=== PATIENT | male | born 1975 | race Two or more races ===

== ENCOUNTER 2022-05-07 10:04 | Emergency (ER) | payer OTHER, SELFPAY ==
--- NOTE | ~2022-05-07 | CT_ITS ---
EXAMINATION: CT ABDOMEN AND PELVIS WITH CONTRAST CLINICAL INFORMATION: pubic pain and swelling COMPARISON: None TECHNIQUE: Multidetector volumetric images were obtained from the superior aspect of the liver through the pubic symphysis following administration 85 mL of Omnipaque 350 intravenous contrast. Sagittal and coronal reformatted images were obtained on the technologist's workstation. Oral contrast: No This CT examination was performed using dose optimization techniques as appropriate, variously including the following: *Automated exposure control *Adjustment of mA and/or kV according to patient size (this includes techniques or standardized protocols for targeted exams where dose is matched to indication/reason for exam; i.e. extremities or head) *Use of iterative reconstruction technique DLP: 715 mGy-cm FINDINGS: LUNG BASES: The visualized lung bases are unremarkable. LIVER, GALLBLADDER, AND BILIARY TREE: Mild diffuse low attenuation of liver parenchyma due to fatty change. There is no focal liver lesion or intrahepatic bile duct dilatation. Status post cholecystectomy. PANCREAS: Unremarkable. SPLEEN: Unremarkable. ADRENAL GLANDS: Unremarkable. KIDNEYS AND URETERS: The kidneys are normal in size, shape, and attenuation. No hydronephrosis, hydroureter, or calculi seen. No perinephric stranding. BLADDER: Unremarkable. GASTROINTESTINAL TRACT: No acute abnormality. There is no bowel wall thickening /edema. There is no bowel obstruction. There is a moderate volume of stool in the colon. The appendix is normal . The small bowel loops are unremarkable. The stomach is normal. There is no hiatal hernia. ABDOMINAL WALL: No significant hernia is appreciated. LYMPH NODES: Normal. VASCULAR: Unremarkable. PELVIC VISCERA: Unremarkable. OSSEOUS STRUCTURES: Unremarkable. CT/CT abdomen pelvis w IV con IMPRESSION: No significant abnormality. Fleischner guidelines were followed.
--- OUTSIDE RECORDS SUMMARY | 2022-05-07 10:16 | XMS_ITS | Continuity of Care Document ---
:1975 Author Organization [facility] Address [address] [place] [address]- Care Team Providers Name Role Phone Dino Hall MD Primary Care Physician [place] [facility] [place] 07[place]20 [facility] [address], [place] [address] Attending Physician: AdmApurva anthony Admitting Physician: Admtr, Ar8 Referring Physician: Admtr, Ar8 Allergies, Adverse Reactions, Alerts Substance Reaction Severity Status NKA Active Immunizations Given and Recorded Vaccine Date Status Refusal Reason influenza virus vaccine, inactivated 02/02/19 Given tetanus/diphtheria/pertussis, acel(Tdap) 01/04/13 Given Medications albuterol CFC free 90 mcg/inh inhalation aerosol 2, puffs, Inhalation, Every 6 hours, PRN, # 1 each, Refills 0, Tot. Refills 0, Maintenance, 06/20/2113:21:00 EDT, Aerosol, Route to Pharmacy Electronically, [id number], [facility]/pharmacy #[id number], 170, cm, 06/20/20 12:13:00 EDT, Hei... Start Date: 06/20/20 Status: Ordereddiclofenac sodium 50 mg oral delayed release tablet 1 tablet, By Mouth, 2 times a day, PRN as needed for pain, with food, # 60 tablet, 1 Refills, Maintenance, 05/20/20 13:57:00 EST, [id number], 170, cm, 05/20/20 13:40:00 EST, Height, 104, kg, 12/25/19 0:46:00 EDT, Dry Weight Start Date: 05/20/20 Status: Orderedergocalciferol 34288 iu oral capsule See Instructions, TAKE 1 CAPSULE BY MOUTH ONCE WEEKLY, # 12 capsule, Refills 0, Tot. Refills 0, SoftStop, 01/05/20 22:59:00 EDT, Instructions Replace Required Details, Route to Pharmacy Electronically, [facility]/pharmacy #[id number], 170, cm, 12/25/19 0:46:00 ED... Start Date: 01/05/20 Status: Orderedfenofibrate 160 mg oral tablet 1 tablet, By Mouth, Daily, # 90 tablet, 1 Refills, Maintenance, 01/11/20 12:49:00 EDT, [facility]/pharmacy #[id number], 170, cm, 01/10/20 9:00:00 EDT, Height, 104, kg, 12/25/19 0:46:00 EDT, Dry Weight Start Date: 01/11/20 Status: Orderedgabapentin 300 mg oral capsule 600 mg, 2, capsule, By Mouth, 2 times a day, # 360 capsule, Refills 3, Tot. Refills 3, Maintenance, 11/02/19 14:10:00 EDT, Route to Pharmacy Electronically, [facility]/pharmacy #[id number], 170, cm, 11/02/19 13:53:00 EDT, Height, 103.7, kg, 10/08/19 20:47:00 EDT,... Start Date: 11/02/19 Status: Orderedglimepiride 2 mg oral tablet 1 tablet, By Mouth, Daily, # 90 tablet, 0 Refills, Maintenance, 05/20/20 13:58:00 EST, [id number], 170, cm, 05/20/20 13:40:00 EST, Height, 104, kg, 12/25/19 0:46:00 EDT, Dry Weight Start Date: 05/20/20 Status: OrderedmetFORMIN 1000 mg oral tablet 1 tablet, By Mouth, 2 times a day with meals, # 180 tablet, 1 Refills, Maintenance, 04/16/20 9:02:00EST, [facility]/pharmacy #[id number], 170, cm, 01/24/20 14:13:00 EDT, Height, 104, kg, 12/25/19 0:46:00 EDT, Dry Weight Start Date: 04/16/20 Status: Orderedomeprazole 20 mg oral enteric coated capsule 1 capsule, By Mouth, 2 times a day, # 180 capsule, 1 Refills, Maintenance, 04/10/20 7:29:00 EST, [id number], 170, cm, 01/24/20 14:13:00 EDT, Height, 104, kg, 12/25/19 0:46:00 EDT, Dry Weight Start Date: 04/10/20 Status: OrderedTrulicity Pen 1.5 mg/0.5 mL subcutaneous solution = 1.5 mg, Subcutaneous Injection, Every week, rotate injection sites, # 2 mL, 5 Refills, Maintenance, 05/28/20 17:30:00 EST, Solution, [id number], 170, cm, 05/20/20 13:40:00 EST, Height, 104, kg, 12/25/19 0:46:00 EDT, Dry Weight Start Date: 05/28/20 Status: Ordered Problem List Condition Effective Dates Status Health Status Informant Asthma(Confirmed) Active Back pain(Confirmed) Active Diabetic neuropathy(Confirmed) Active Disturbance in sleep Active behavior(Confirmed) Elevated liver enzymes(Confirmed) Active Folliculitis(Confirmed) Active Foot pain(Confirmed) Active Gastroesophageal reflux Active disease(Confirmed) Hand pain(Confirmed) Active Hyperlipidemia(Confirmed) Active Knee pain(Confirmed) Active Left inguinal hernia(Confirmed) Active Numbness of hand(Confirmed) Active Obesity(Confirmed) Active Pain in elbow(Confirmed) Active Pain in wrist(Confirmed) Active Rib pain on right side(Confirmed) Active Shoulder joint pain(Confirmed) Active Acrochordon(Confirmed) Active Tobacco user(Confirmed) Active Controlled type 2 diabetes Active mellitus(Confirmed) Type II diabetes mellitus Active uncontrolled(Confirmed) Vitamin D deficiency(Confirmed) Active Social History Social History Type Response Smoking Status Never (less than 100 in life time) entered on: 07/05/18 Sex
--- OUTSIDE RECORDS SUMMARY | 2022-05-07 10:16 | XMS_ITS | Continuity of Care Document ---
:1975 Author Organization [facility] Address [address] [place] [address]- Care Team Providers Name Role Phone Dino Hall MD Primary Care Physician [place] [facility] [place] 07[place]/20 [facility] [address] [place] [address]- Encounter Diagnosis Mild asthma exacerbation (Discharge Diagnosis) - 06/24/20 Attending Physician: Dalia Barahona MD Referring Physician: Dino Hall MD Allergies, Adverse Reactions, Alerts Substance Reaction Severity Status NKA Active Immunizations Given and Recorded Vaccine Date Status Refusal Reason influenza virus vaccine, inactivated 02/02/19 Given tetanus/diphtheria/pertussis, acel(Tdap) 01/04/13 Given Medications albuterol 0.083% inhalation solution 3 mL = 2.5 mg, Inhalation, Every 6 hours, # 360 mL, 0 Refills, Maintenance, 06/24/20 12:05:00 EDT, Solution, [id number], Partial fill upon patient request if the prescription is for a schedule II opioid drug., 170, cm, 06/20/20 12:13:00 EDT, H... Start Date: 06/24/20 Stop Date: 07/24/20 Status: Orderedalbuterol CFC free 90 mcg/inh inhalation aerosol 2, puffs, Inhalation, Every 6 hours, PRN, # 1 each, Refills 0, Tot. Refills 0, Maintenance, 06/20/2113:21:00 EDT, Aerosol, Route to Pharmacy Electronically, [id number], [id number], 170, cm, 06/20/20 12:13:00 EDT, Hei... Start Date: 06/20/20 Status: Ordereddiclofenac sodium 50 mg oral delayed release tablet 1 tablet, By Mouth, 2 times a day, PRN as needed for pain, with food, # 60 tablet, 1 Refills, Maintenance, 05/20/20 13:57:00 EST, [facility]/pharmacy #[id number], 170, cm, 05/20/20 13:40:00 EST, Height, 104, kg, 12/25/19 0:46:00 EDT, Dry Weight Start Date: 05/20/20 Status: Orderedergocalciferol 49510 iu oral capsule See Instructions, TAKE 1 CAPSULE BY MOUTH ONCE WEEKLY, # 12 capsule, Refills 0, Tot. Refills 0, SoftStop, 01/05/20 22:59:00 EDT, Instructions Replace Required Details, Route to Pharmacy Electronically, [facility]/pharmacy #[id number], 170, cm, 12/25/19 0:46:00 ED... Start Date: 01/05/20 Status: Orderedfenofibrate 160 mg oral tablet 1 tablet, By Mouth, Daily, # 90 tablet, 1 Refills, Maintenance, 01/11/20 12:49:00 EDT, [facility]/pharmacy #[id number], 170, cm, 01/10/20 9:00:00 EDT, Height, 104, kg, 12/25/19 0:46:00 EDT, Dry Weight Start Date: 01/11/20 Status: OrderedFreestyle Lite Lancets See Instructions, # 180 units, Refills 1, Tot. Refills 1, Maintenance, Check blood glucose twice daily before meals. Dx: E11.65, 10/06/18 13:20:24 EDT, Compound Start Date: 10/06/18 Status: OrderedFreestyle Lite Test Strips See Instructions, # 180 strip(s), Refills 1, Tot. Refills 1, Maintenance, Check blood glucose twice daily before meals. Dx: E11.65, 10/06/18 13:19:39 EDT, Compound Start Date: 10/06/18 Status: OrderedFreestyle lite test strips. Freestyle lite test strips., See Instructions, # 200 each, Refills 3, Tot. Refills 3, Maintenance, test twice a day, 01/24/20 14:48:00 EDT, Supply, 170, cm, 01/24/20 14:13:00 EDT, Height, 104, kg, 12/25/19 0:46:00 EDT, Dry Weight Start Date: 01/24/20 Status: Orderedgabapentin 300 mg oral capsule 600 mg, 2, capsule, By Mouth, 2 times a day, # 360 capsule, Refills 3, Tot. Refills 3, Maintenance, 11/02/19 14:10:00 EDT, Route to Pharmacy Electronically, [facility]/pharmacy #[id number], 170, cm, 11/02/19 13:53:00 EDT, Height, 103.7, kg, 10/08/19 20:47:00 EDT,... Start Date: 11/02/19 Status: Orderedglimepiride 2 mg oral tablet 1 tablet, By Mouth, Daily, # 90 tablet, 0 Refills, Maintenance, 05/20/20 13:58:00 EST, [facility]/pharmacy #[id number], 170, cm, 05/20/20 13:40:00 EST, Height, 104, kg, 12/25/19 0:46:00 EDT, Dry Weight Start Date: 05/20/20 Status: OrderedmetFORMIN 1000 mg oral tablet 1 tablet, By Mouth, 2 times a day with meals, # 180 tablet, 1 Refills, Maintenance, 04/16/20 9:02:00EST, [facility]/pharmacy #[id number], 170, cm, 01/24/20 14:13:00 EDT, Height, 104, kg, 12/25/19 0:46:00 EDT, Dry Weight Start Date: 04/16/20 Status: Orderedomeprazole 20 mg oral enteric coated capsule 1 capsule, By Mouth, 2 times a day, # 180 capsule, 1 Refills, Maintenance, 04/10/20 7:29:00 EST, [facility]/pharmacy #[id number], 170, cm, 01/24/20 14:13:00 EDT, Height, [...] mellitus Active uncontrolled(Confirmed) Vitamin D deficiency(Confirmed) Active Diagnosis Diagnosis Type Effective Dates Health Clinical Infor mant Status Service Mild asthma Discharge 06/24/20 exacerbation Diagnosis Vital Signs Most recent to oldest [Reference Range]: 1 Height 170 cm (06/24/20 5:09 PM) Oxygen Saturation [94-100 %] 98 % (06/24/20 5:09 PM) Pulse Rate [55-90 bpm] 87 bpm (06/24/20 5:09 PM) Blood Pressure [90-138/55-84 mm Hg] 130/80 mm Hg (06/24/20 5:09 PM) Respiratory Rate [16-30 br/min] 18 br/min (06/24/20 5:09 PM) Temperature [96.8-100.4 DegF] 98.3 DegF (06/24/20 5:09 PM) Mode of Delivery (Oxygen) Room air (06/24/20 5:09 PM) Blood pressure sites Arm, left (06/24/20 5:09 PM) Temperature Route Temporal (06/24/20 5:09 PM) Social History Social History Type Response Smoking Status Never (less than 100 in life time) entered on: 07/05/18 Sex
--- OUTSIDE RECORDS SUMMARY | 2022-05-07 10:16 | XMS_ITS | Continuity of Care Document ---
:1975 Author Organization [facility] Address [address] [place] [address]- Care Team Providers Name Role Phone Dino Hall MD Primary Care Physician [place] [facility] [place]): 06/24/20 - 07/01/20 [facility] [address] [place] [address]- Encounter Diagnosis Suspected COVID-19 virus infection (Discharge Diagnosis) - 06/24/20 Asthma (Discharge Diagnosis) - 06/24/20 Attending Physician: Not on Staff, Attending MD Referring Physician: Dino Hall MD Allergies, [...] 06/20/2113:21:00 EDT, Aerosol, Route to Pharmacy Electronically, [id number], [id number], 170, cm, 06/20/20 12:13:00 EDT, Hei... Start Date: 06/20/20 Status: Ordereddiclofenac sodium 50 mg oral delayed release tablet 1 tablet, By Mouth, 2 times a day, PRN as needed for pain, with food, # 60 tablet, 1 Refills, Maintenance, 05/20/20 13:57:00 EST, [facility]/pharmacy #[id number], 170, cm, 05/20/20 13:40:00 EST, Height, 104, kg, 12/25/19 0:46:00 EDT, Dry Weight Start Date: 05/20/20 Status: Orderedergocalciferol 93581 iu oral capsule See Instructions, TAKE 1 CAPSULE BY MOUTH ONCE WEEKLY, # 12 capsule, Refills 0, Tot. Refills 0, SoftStop, 01/05/20 22:59:00 EDT, Instructions Replace Required Details, Route to Pharmacy Electronically, [facility]/pharmacy #[id number], 170, cm, 12/25/19 0:46:00 ED... Start Date: 01/05/20 Status: Orderedfenofibrate 160 mg oral tablet 1 tablet, By Mouth, Daily, # 90 tablet, 1 Refills, Maintenance, 01/11/20 12:49:00 EDT, [facility]/pharmacy #[id number], 170, cm, 01/10/20 9:00:00 EDT, Height, [...] 11/02/19 14:10:00 EDT, Route to Pharmacy Electronically, [facility]/pharmacy #[id number], 170, cm, 11/02/19 13:53:00 EDT, Height, 103.7, kg, 10/08/19 20:47:00 EDT,... Start Date: 11/02/19 Status: Orderedglimepiride 2 mg oral tablet 1 tablet, By Mouth, Daily, # 90 tablet, 0 Refills, Maintenance, 05/20/20 13:58:00 EST, [facility]/pharmacy #[id number], 170, cm, 05/20/20 13:40:00 EST, Height, 104, kg, 12/25/19 0:46:00 EDT, Dry Weight Start Date: 05/20/20 Status: OrderedmetFORMIN 1000 mg oral tablet 1 tablet, By Mouth, 2 times a day with meals, # 180 tablet, 1 Refills, Maintenance, 04/16/20 9:02:00EST, [facility]/pharmacy #[id number], 170, cm, 01/24/20 14:13:00 EDT, Height, 104, kg, 12/25/19 0:46:00 EDT, Dry Weight Start Date: 04/16/20 Status: Orderedomeprazole 20 mg oral enteric coated capsule 1 capsule, By Mouth, 2 times a day, # 180 capsule, 1 Refills, Maintenance, 04/10/20 7:29:00 EST, [facility]/pharmacy #[id number], 170, cm, 01/24/20 14:13:00 EDT, Height, [...] Active Diagnosis Diagnosis Type Effective Dates Health Status Clinical In formant Service Suspected Discharge 06/24/20 COVID-19 virus Diagnosis infection Asthma Discharge 06/24/20 Diagnosis Social History Social History Type Response Smoking Status Never (less than 100 in life time) entered on: 07/05/18 Sex
--- OUTSIDE RECORDS SUMMARY | 2022-05-07 10:16 | XMS_ITS | Continuity of Care Document ---
:1975 Author Organization [facility] Address [address] [place] [address]- Care Team Providers Name Role Phone Dino Hall MD Primary Care Physician Encounter [facility] [place]s): 06/24/20 - 07/24/20 [facility] [address] [place], [place] [address] Attending Physician: AdmApurva anthony Admitting Physician: Admtr, Michael8 Referring Physician: Admtr, Ar8 Allergies, Adverse Reactions, [...] 06/20/2113:21:00 EDT, Aerosol, Route to Pharmacy Electronically, [id number], [facility]/pharmacy #[id number], 170, cm, 06/20/20 12:13:00 EDT, Hei... Start Date: 06/20/20 Status: Ordereddiclofenac sodium 50 mg oral delayed release tablet 1 tablet, By Mouth, 2 times a day, PRN as needed for pain, with food, # 60 tablet, 1 Refills, Maintenance, 05/20/20 13:57:00 EST, [id number], 170, cm, 05/20/20 13:40:00 EST, Height, 104, kg, 12/25/19 0:46:00 EDT, Dry Weight Start Date: 05/20/20 Status: Orderedergocalciferol 38567 iu oral capsule See Instructions, TAKE 1 CAPSULE BY MOUTH ONCE WEEKLY, # 12 capsule, Refills 0, Tot. Refills 0, SoftStop, 01/05/20 22:59:00 EDT, Instructions Replace Required Details, Route to Pharmacy Electronically, [facility]/pharmacy #[id number], 170, cm, 12/25/19 0:46:00 ED... Start Date: 01/05/20 Status: Orderedfenofibrate 160 mg oral tablet 1 tablet, By Mouth, Daily, # 90 tablet, 1 Refills, Maintenance, 01/11/20 12:49:00 EDT, [facility]/pharmacy #[id number], 170, cm, 01/10/20 9:00:00 EDT, Height, 104, kg, 12/25/19 0:46:00 EDT, Dry Weight Start Date: 01/11/20 Status: Orderedgabapentin 300 mg oral capsule 600 mg, 2, capsule, By Mouth, 2 times a day, # 360 capsule, Refills 3, Tot. Refills 3, Maintenance, 11/02/19 14:10:00 EDT, Route to Pharmacy Electronically, [facility]/pharmacy #[id number], 170, cm, 11/02/19 13:53:00 EDT, Height, 103.7, kg, 10/08/19 20:47:00 EDT,... Start Date: 11/02/19 Status: Orderedglimepiride 2 mg oral tablet 1 tablet, By Mouth, Daily, # 90 tablet, 0 Refills, Maintenance, 05/20/20 13:58:00 EST, [facility]/pharmacy #[id number], 170, cm, 05/20/20 13:40:00 EST, Height, 104, kg, 12/25/19 0:46:00 EDT, Dry Weight Start Date: 05/20/20 Status: OrderedmetFORMIN 1000 mg oral tablet 1 tablet, By Mouth, 2 times a day with meals, # 180 tablet, 1 Refills, Maintenance, 04/16/20 9:02:00EST, [facility]/pharmacy #[id number], 170, cm, 01/24/20 14:13:00 EDT, Height, 104, kg, 12/25/19 0:46:00 EDT, Dry Weight Start Date: 04/16/20 Status: Orderedomeprazole 20 mg oral enteric coated capsule 1 capsule, By Mouth, 2 times a day, # 180 capsule, 1 Refills, Maintenance, 04/10/20 7:29:00 EST, [facility]/pharmacy #[id number], 170, cm, 01/24/20 14:13:00 EDT, Height, 104, kg, 12/25/19 0:46:00 EDT, Dry Weight Start Date: 04/10/20 Status: OrderedTrulicity Pen 1.5 mg/0.5 mL subcutaneous solution = 1.5 mg, Subcutaneous Injection, Every week, rotate injection sites, # 2 mL, 5 Refills, Maintenance, 05/28/20 17:30:00 EST, Solution, [facility]/pharmacy #[id number], 170, cm, 05/20/20 13:40:00 EST, Height, [...]
--- OUTSIDE RECORDS SUMMARY | 2022-05-07 10:16 | XMS_ITS | Continuity of Care Document ---
:1975 Author Organization [facility] Address [address] [place] [address]- Care Team Providers Name Role Phone Dino Hall MD Primary Care Physician Encounter [facility] [place] Date(s): 06/20/20 - 07/20/20 [facility] [address] [place] [address]- Attending Physician: Admtr, Apurva Admitting Physician: Admtr, Ar8 Referring Physician: Admtr, [...] 06/20/2113:21:00 EDT, Aerosol, Route to Pharmacy Electronically, [id number], [facility]/pharmacy #[id number], 170, cm, 06/20/20 12:13:00 EDT, Hei... Start Date: 06/20/20 Status: Ordereddiclofenac sodium 50 mg oral delayed release tablet 1 tablet, By Mouth, 2 times a day, PRN as needed for pain, with food, # 60 tablet, 1 Refills, Maintenance, 05/20/20 13:57:00 EST, [facility]/pharmacy #[id number], 170, cm, 05/20/20 13:40:00 EST, Height, 104, kg, 12/25/19 0:46:00 EDT, Dry Weight Start Date: 05/20/20 Status: Orderedergocalciferol 75162 iu oral capsule See Instructions, TAKE 1 CAPSULE BY MOUTH ONCE WEEKLY, # 12 capsule, Refills 0, Tot. Refills 0, SoftStop, 01/05/20 22:59:00 EDT, Instructions Replace Required Details, Route to Pharmacy Electronically, [facility]/pharmacy #[id number], 170, cm, 12/25/19 0:46:00 ED... Start Date: 01/05/20 Status: Orderedfenofibrate 160 mg oral tablet 1 tablet, By Mouth, Daily, # 90 tablet, 1 Refills, Maintenance, 01/11/20 12:49:00 EDT, [facility]/pharmacy #[id number], 170, cm, 01/10/20 9:00:00 EDT, Height, 104, kg, 12/25/19 0:46:00 EDT, Dry Weight Start Date: 01/11/20 Status: Orderedgabapentin 300 mg oral capsule 600 mg, 2, capsule, By Mouth, 2 times a day, # 360 capsule, Refills 3, Tot. Refills 3, Maintenance, 11/02/19 14:10:00 EDT, Route to Pharmacy Electronically, [facility]/pharmacy #[id number], 170, cm, 11/02/19 13:53:00 EDT, Height, [...] 180 tablet, 1 Refills, Maintenance, 04/16/20 9:02:00EST, [facility]/pharmacy #[id number], 170, cm, 01/24/20 14:13:00 EDT, Height, 104, kg, 12/25/19 0:46:00 EDT, Dry Weight Start Date: 04/16/20 Status: Orderedomeprazole 20 mg oral enteric coated capsule 1 capsule, By Mouth, 2 times a day, # 180 capsule, 1 Refills, Maintenance, 04/10/20 7:29:00 EST, [facility]/pharmacy #[id number], 170, cm, 01/24/20 14:13:00 EDT, Height, 104, kg, 12/25/19 0:46:00 EDT, Dry Weight Start Date: 04/10/20 Status: OrderedTrulicity Pen 1.5 mg/0.5 mL subcutaneous solution = 1.5 mg, Subcutaneous Injection, Every week, rotate injection sites, # 2 mL, 5 Refills, Maintenance, 05/28/20 17:30:00 EST, Solution, [facility]/pharmacy #[id number], 170, cm, 05/20/20 13:40:00 EST, Height, [...]
--- OUTSIDE RECORDS SUMMARY | 2022-05-07 10:16 | XMS_ITS | Continuity of Care Document ---
:1975 Author Organization [facility] Address [address] [place] [address]- Care Team Providers Name Role Phone Dino Hall MD Primary Care Physician Encounter [facility] Date(s): 04/18/19 - 04/25/[address] [address]- [facility] Attending Physician: Dino Hall MD Allergies, Adverse Reactions, Alerts Substance Reaction Severity Status NKA Active Immunizations Given and Recorded Vaccine Date Status Refusal Reason influenza virus vaccine, inactivated 02/02/19 Given tetanus/diphtheria/pertussis, acel(Tdap) 01/04/13 Given Medications albuterol 90 mcg/inh inhalation aerosol with adapter 2, puffs, Inhalation, 5 times a day, Scheduled / PRN, 34, Gm, 0, 0, 08/17/06 0:30:32, as needed for wheezing, Print BRIAN Number, ADS OPPTHS, 52 Start Date: 08/17/06 Status: Orderedamitriptyline 10 mg oral tablet See Instructions, # 30 tablet, Refills 2 Tot. Refills 2, TAKE 1 TABLET BY MOUTH EVERYDAY AT BEDTIME,[facility]/pharmacy #[id number] Start Date: 11/10/18 Status: OrderedAspirin Enteric Coated 81 mg oral delayed release tablet See Instructions, # 60 tablet, Refills 2 Tot. Refills 2, TAKE 2 TABLETS BY MOUTH EVERY DAY, [facility]/pharmacy #[id number] Start Date: 10/14/18 Status: Orderedatorvastatin 80 mg oral tablet 0.5 tablet = 40 mg, By Mouth, Daily, # 15 tablet, 5 Refills, Soft Stop, 02/02/19 15:40:04 EST Start Date: 02/02/19 Status: OrderedCrutches See Instructions, # 1 pair, Maintenance, use as instructed, 09/14/11 7:25:42 Start Date: 09/14/11 Status: Ordereddiclofenac sodium 50 mg oral delayed release tablet 1 tablet, By Mouth, 2 times a day, TAKE WITH FOOD. STOP NAPROXEN), # 60 tablet, 0 Refills, Maintenance, 04/06/19 12:59:00 EST, [id number], 170, cm, 03/09/19 10:25:00 EST, Height Start Date: 04/06/19 Status: Orderedergocalciferol 82097 iu oral capsule See Instructions, # 12 capsule, Refills 1 Tot. Refills 1, TAKE 1 CAPSULE BY MOUTH ONCE WEEKLY, [facility]/pharmacy #[id number] Start Date: 08/01/18 Status: Orderedfenofibrate 160 mg oral tablet 1 tablet, By Mouth, Daily, # 30 tablet, 5 Refills, Maintenance, 04/06/19 13:01:00 EST, [id number], 170, cm, 03/09/19 10:25:00 EST, Height Start Date: 04/06/19 Status: OrderedFreestyle Lite Lancets See Instructions, # [...] 13:19:39 EDT, Compound Start Date: 10/06/18 Status: Orderedgabapentin 300 mg oral capsule See Instructions, # 90 capsule, Refills 1 Tot. Refills 1, TAKE ONE CAPSULE BY MOUTH 3 TIMES A DAY, [facility]/pharmacy #[id number] Start Date: 01/24/19 Status: Orderedgabapentin 300 mg oral capsule See Instructions, TAKE ONE CAPSULE BY MOUTH 3 TIMES A DAY, # 90 capsule, Refills 0, Tot. Refills 0, Soft Stop, 04/10/19 13:35:00 EST, Instructions Replace Required Details, Route to Pharmacy Electronically, [facility]/pharmacy #[id number], 170, cm, 04/09/19 18:10:... Start Date: 04/10/19 Status: OrderedglipiZIDE 10 mg oral tablet, extended release 1 tablet = 10 mg, By Mouth, Daily, # 30 tablet, 0 Refills, Maintenance, 11/17/18 15:34:54 EDT, ER Tablet Start Date: 11/17/18 Status: Orderedlidocaine 5% topical ointment 1 applicator, Topically, 3 times a day, Right elbow, # 50 Gm, 1 Refills, Maintenance, 08/25/18 15:43:11 EDT, 1 applicator Topically 3 times a day,Instr:Right elbow Start Date: 08/25/18 Status: OrderedmetFORMIN 1000 mg oral tablet 1 tablet, By Mouth, 2 times a day with meals, # 60 tablet, 8 Refills, Maintenance, 04/06/19 13:01:00EST, [id number], 170, cm, 03/09/19 10:25:00 EST, Height Start Date: 04/06/19 Status: Orderedomeprazole 20 mg oral enteric coated capsule 1 capsule, By Mouth, Daily, # 30 capsule, 3 Refills, Maintenance, 04/06/19 12:59:00 EST, [facility], 170, cm, 03/09/19 10:25:00 EST, Height Start Date: 04/06/19 Status: OrderedOzempic (0.25 mg or 0.5 mg dose) 2 mg/1.5 mL subcutaneous solution See Instructions, 0.25 mg Subcutaneous Injection Every week for 4 weeks then increase to 0.5 mg weekly, # 4 each, 1 Refills, Maintenance, 03/09/19 10:44:10 EST, Solution, 170, cm, 03/09/19 10:25:44 EST, Height Start Date: 03/09/19 Status: OrderedProAir HFA 90 mcg/inh inhalation aerosol with adapter 2, puffs, Inhalation, Every 4 hours, PRN, # 8.5 Gm, Refills 3, Tot. Refills 3, Maintenance, 04/20/2014:04:00 EST, Aerosol, Route to Pharmacy Electronically, [id number], [facility]/pharmacy #[id number], 170, cm, 04/20/19 14:35:00 EST, Hei... Start Date: 04/20/19 Status: Ordered Problem List Condition Effective Dates Status Health Status Informant Asthma(Confirmed) Active Diabetic neuropathy(Confirmed) Active Disturbance in sleep Active behavior(Confirmed) Elevated liver enzymes(Confirmed) Active Folliculitis(Confirmed) Active Foot pain(Confirmed) Active Gastroesophageal reflux Active disease(Confirmed) Hand pain(Confirmed) Active Hyperlipidemia(Confirmed) Active Knee pain(Confirmed) Active Numbness of hand(Confirmed) Active Obesity(Confirmed) Active Pain in elbow(Confirmed) Active Pain in wrist(Confirmed) Active Shoulder joint pain(Confirmed) Active Acrochordon(Confirmed) Active Tobacco user(Confirmed) Active Type II diabetes mellitus Active uncontrolled(Confirmed) Vitamin D deficiency(Confirmed) Active Social History Social History Type Response Smoking Status Never (less than 100 in life time) entered on: 07/05/18 Sex
--- OUTSIDE RECORDS SUMMARY | 2022-05-07 10:16 | XMS_ITS | Continuity of Care Document ---
:1975 Author Organization [facility] Address [address] [place] [address]- Care Team Providers Name Role Phone Dino Hall MD Primary Care Physician Encounter [facility] [place] Date(s): 06/21/20 - 07/21/20 [facility] [address] [place] [address]- Allergies, Adverse Reactions, Alerts Substance Reaction Severity Status NKA Active Immunizations Given and Recorded Vaccine Date Status Refusal Reason influenza virus vaccine, inactivated 02/02/19 Given tetanus/diphtheria/pertussis, acel(Tdap) 01/04/13 Given Medications albuterol CFC free 90 mcg/inh inhalation aerosol 2, puffs, Inhalation, Every 6 hours, PRN, # 1 each, Refills 0, Tot. Refills 0, Maintenance, 06/20/2113:21:00 EDT, Aerosol, Route to Pharmacy Electronically, [id number], [facility]/pharmacy #[id number], 170, cm, 06/20/20 12:13:00 EDT, Hei... Start Date: 06/20/20 Status: Ordereddiclofenac sodium 50 mg oral delayed release tablet 1 tablet, By Mouth, 2 times a day, PRN as needed for pain, with food, # 60 tablet, 1 Refills, Maintenance, 05/20/20 13:57:00 EST, [facility]/pharmacy #[id number], 170, cm, 05/20/20 13:40:00 EST, Height, 104, kg, 12/25/19 0:46:00 EDT, Dry Weight Start Date: 05/20/20 Status: Orderedergocalciferol 33941 iu oral capsule See Instructions, TAKE 1 CAPSULE BY MOUTH ONCE WEEKLY, # 12 capsule, Refills 0, Tot. Refills 0, SoftStop, 01/05/20 22:59:00 EDT, Instructions Replace Required Details, Route to Pharmacy Electronically, [facility]/pharmacy #[id number], 170, cm, 12/25/19 0:46:00 ED... Start Date: 01/05/20 Status: Orderedfenofibrate 160 mg oral tablet 1 tablet, By Mouth, Daily, # 90 tablet, 1 Refills, Maintenance, 01/11/20 12:49:00 EDT, [facility]/pharmacy #[id number], 170, cm, 01/10/20 9:00:00 EDT, Height, 104, kg, 12/25/19 0:46:00 EDT, Dry Weight Start Date: 01/11/20 Status: Orderedgabapentin 300 mg oral capsule 600 mg, 2, capsule, By Mouth, 2 times a day, # 360 capsule, Refills 3, Tot. Refills 3, Maintenance, 11/02/19 14:10:00 EDT, Route to Pharmacy Electronically, [facility]/pharmacy #[id number], 170, cm, 11/02/19 13:53:00 EDT, Height, 103.7, kg, 10/08/19 20:47:00 EDT,... Start Date: 11/02/19 Status: Orderedglimepiride 2 mg oral tablet 1 tablet, By Mouth, Daily, # 90 tablet, 0 Refills, Maintenance, 05/20/20 13:58:00 EST, [facility]/pharmacy #[id number], 170, cm, 05/20/20 13:40:00 EST, Height, 104, kg, 12/25/19 0:46:00 EDT, Dry Weight Start Date: 05/20/20 Status: OrderedmetFORMIN 1000 mg oral tablet 1 tablet, By Mouth, 2 times a day with meals, # 180 tablet, 1 Refills, Maintenance, 04/16/20 9:02:00EST, [facility]/pharmacy #[id number], 170, cm, 01/24/20 14:13:00 EDT, Height, [...] 5 Refills, Maintenance, 05/28/20 17:30:00 EST, Solution, [facility]/pharmacy #[id number], 170, cm, 05/20/20 13:40:00 EST, Height, [...]
--- OUTSIDE RECORDS SUMMARY | 2022-05-07 10:16 | XMS_ITS | Continuity of Care Document ---
:1975 Author Organization [facility] Address [address] [place] [address]- Care Team Providers Name Role Phone Dino Hall MD Primary Care Physician Encounter [facility] Date(s): 06/24/20 - 07/24/20 [facility] [address], [place] [address] Attending Physician: Not on Staff, Attending MD Allergies, Adverse Reactions, Alerts Substance Reaction Severity Status NKA Active Immunizations Given and Recorded Vaccine Date Status Refusal Reason influenza virus vaccine, inactivated 02/02/19 Given tetanus/diphtheria/pertussis, acel(Tdap) 01/04/13 Given Medications albuterol CFC free 90 mcg/inh inhalation aerosol 2, puffs, Inhalation, Every 6 hours, PRN, # 1 each, Refills 0, Tot. Refills 0, Maintenance, 06/20/2113:21:00 EDT, Aerosol, Route to Pharmacy Electronically, [id number], [facility]/pharmacy #[id number], 170, cm, 06/20/20 12:13:00 EDT, Hei... Start Date: 06/20/20 Status: Ordereddiclofenac sodium 50 mg oral delayed release tablet 1 tablet, By Mouth, 2 times a day, PRN as needed for pain, with food, # 60 tablet, 1 Refills, Maintenance, 05/20/20 13:57:00 EST, [facility]/pharm[facility] #[id number], 170, cm, 05/20/20 13:40:00 EST, Height, 104, kg, 12/25/19 0:46:00 EDT, Dry Weight Start Date: 05/20/20 Status: Orderedergocalciferol 92049 iu oral capsule See Instructions, TAKE 1 CAPSULE BY MOUTH ONCE WEEKLY, # 12 capsule, Refills 0, Tot. Refills 0, SoftStop, 01/05/20 22:59:00 EDT, Instructions Replace Required Details, Route to Pharmacy Electronically, [facility]/pharmacy #[id number], 170, cm, 12/25/19 0:46:00 ED... Start Date: 01/05/20 Status: Orderedfenofibrate 160 mg oral tablet 1 tablet, By Mouth, Daily, # 90 tablet, 1 Refills, Maintenance, 01/11/20 12:49:00 EDT, [facility]/pharmacy #[id number], 170, cm, 01/10/20 9:00:00 EDT, Height, 104, kg, 12/25/19 0:46:00 EDT, Dry Weight Start Date: 01/11/20 Status: Orderedgabapentin 300 mg oral capsule 600 mg, 2, capsule, By Mouth, 2 times a day, # 360 capsule, Refills 3, Tot. Refills 3, Maintenance, 11/02/19 14:10:00 EDT, Route to Pharmacy Electronically, [facility]/pharmacy #[id number], 170, cm, 11/02/19 13:53:00 EDT, Height, 103.7, kg, 10/08/19 20:47:00 EDT,... Start Date: 11/02/19 Status: Orderedglimepiride 2 mg oral tablet 1 tablet, By Mouth, Daily, # 90 tablet, 0 Refills, Maintenance, 05/20/20 13:58:00 EST, [facility]/pharmacy #[id number], 170, cm, 05/20/20 13:40:00 EST, Height, 104, kg, 12/25/19 0:46:00 EDT, Dry Weight Start Date: 05/20/20 Status: OrderedmetFORMIN 1000 mg oral tablet 1 tablet, By Mouth, 2 times a day with meals, # 180 tablet, 1 Refills, Maintenance, 04/16/20 9:02:00EST, [facility]/pharmacy #[id number], 170, cm, 01/24/20 14:13:00 EDT, Height, [...]
--- OUTSIDE RECORDS SUMMARY | 2022-05-07 10:16 | XMS_ITS | Continuity of Care Document ---
:1975 Author Organization [facility] Address [address] [place] [address] Drive [address] [place] [address]- Care Team Providers Name Role Phone Dino Hall MD Primary Care Physician Encounter [facility] Date(s): 01/10/20 - 01/17/[address] [place] [address]- [facility] Attending Physician: Carlos Ochoa MD Referring Physician: Dino Hall MD Allergies, [...] ADS OPPTHS, 52 Start Date: 08/17/06 Status: Ordereddiclofenac sodium 50 mg oral delayed release tablet 1 tablet, By Mouth, 2 times a day, PRN NEEDED FOR PAIN (, TAKE WITH FOOD, STOP NAPROXEN., # 60 tablet, 0 Refills, Maintenance, 11/13/19 10:01:00 EDT, [id number], 170, cm, 11/02/19 13:53:00 EDT,Height, 103.7, kg, 10/08/19 20:47:00 EDT, Dry Weight Start Date: 11/13/19 Status: Orderedergocalciferol 77339 iu oral capsule See Instructions, TAKE 1 CAPSULE BY MOUTH ONCE WEEKLY, # 12 capsule, Refills 0, Tot. Refills 0, SoftStop, 01/05/20 22:59:00 EDT, Instructions Replace Required Details, Route to Pharmacy Electronically, [facility]/pharmacy #[id number], 170, cm, 12/25/19 0:46:00 ED... Start Date: 01/05/20 Status: Orderedfenofibrate 160 mg oral tablet 1 tablet, By Mouth, Daily, # 90 tablet, 1 Refills, Maintenance, 01/11/20 12:49:00 EDT, [facility]/pharmacy #[id number], 170, cm, 01/10/20 9:00:00 EDT, [...] Freestyle lite test strips., See Instructions, # 100 each, Refills 5, Tot. Refills 5, Maintenance, test twice a day, 01/05/20 15:44:00 EDT, Supply, 170, cm, 12/25/19 0:46:00 EDT, Height, 104, kg, 12/25/19 0:46:00 EDT, Dry Weight Start Date: 01/05/20 Status: Orderedgabapentin 300 mg oral capsule 600 mg, 2, capsule, By Mouth, 2 times a day, # 360 capsule, Refills 3, Tot. Refills 3, Maintenance, 11/02/19 14:10:00 EDT, Route to Pharmacy Electronically, [facility]/pharmacy #[id number], 170, cm, 11/02/19 13:53:00 EDT, Height, 103.7, kg, 10/08/19 20:47:00 EDT,... Start Date: 11/02/19 Status: Orderedglimepiride 2 mg oral tablet 1 tablet, By Mouth, Daily, # 90 tablet, 0 Refills, Maintenance, 10/23/19 8:58:00 EDT, [id number], 170, cm, 10/08/19 20:47:00 EDT, Height, 103.7, kg, 10/08/19 20:47:00 EDT, Dry Weight Start Date: 10/23/19 Status: OrderedmetFORMIN 1000 mg oral tablet 1 tablet, By Mouth, 2 times a day with meals, # 60 tablet, 8 Refills, Maintenance, 04/06/19 13:01:00EST, [facility], 170, cm, 03/09/19 10:25:00 EST, Height Start Date: 04/06/19 Status: Orderedomeprazole 20 mg oral enteric coated capsule 1 capsule, By Mouth, 2 times a day, # 60 capsule, 3 Refills, Maintenance, 12/25/19 11:26:00 EDT, 170, cm, 12/25/19 0:46:00 EDT, Height, 104, kg, 12/25/19 0:46:00 EDT, Dry Weight Start Date: 12/25/19 Stop Date: 04/23/20 Status: OrderedOzempic (0.25 mg or 0.5 mg dose) 2 mg/1.5 mL subcutaneous solution See Instructions, INJECT 0.5MG SUBCUTANEOUSLY EVERY WEEK, # 1.5 Unknown, 3 Refills, 12/05/19 10:06:00 EDT, [id number], 170, cm, 12/03/19 18:37:00 EDT, Height, 101, kg, 12/03/19 18:37:00 EDT, Dry Weight Start Date: 12/05/19 Status: Ordered Problem List Condition Effective Dates [...] mellitus Active uncontrolled(Confirmed) Vitamin D deficiency(Confirmed) Active Vital Signs Most recent to oldest [Reference Range]: 1 Height 170 cm (01/10/20 9:00 AM) Pulse Rate [55-90 bpm] 92 bpm *H* (01/10/20 9:00 AM) Blood Pressure [90-138/55-84 mm Hg] 121/80 mm Hg (01/10/20 9:00 AM) Temperature [96.8-100.4 DegF] 97.1 DegF (01/10/20 9:00 AM) Blood pressure sites Arm, left (01/10/20 9:00 AM) Social History Social History Type Response Smoking Status Never (less than 100 in life time) entered on: 07/05/18 Sex
--- OUTSIDE RECORDS SUMMARY | 2022-05-07 10:16 | XMS_ITS | Continuity of Care Document ---
:1975 Author Organization [facility] Address [address] [place] [address]- Care Team Providers Name Role Phone Dino Hall MD Primary Care Physician [place] [facility] [place] 06/[place]20 - 06/27/20 [facility] [address] [place] [address]- Encounter Diagnosis Acute URI (Discharge Diagnosis) - 06/20/20 Controlled type 2 diabetes mellitus (Discharge Diagnosis) - 06/20/20 Asthma (Discharge Diagnosis) - 06/20/20 Obesity (Discharge Diagnosis) - 06/20/20 Attending Physician: Liz Jefferson NP Allergies, Adverse Reactions, Alerts Substance Reaction Severity Status NKA Active Immunizations Given and Recorded Vaccine Date Status Refusal Reason influenza virus vaccine, inactivated 02/02/19 Given tetanus/diphtheria/pertussis, acel(Tdap) 01/04/13 Given Medications albuterol 0.083% inhalation solution 3 mL = 2.5 mg, Inhalation, Every 6 hours, # 360 mL, 0 Refills, Maintenance, 06/24/20 12:05:00 EDT, Solution, [id number], Partial fill upon patient request if the prescription is for a schedule II opioid drug., 170, cm, 06/20/20 12:13:00 EDT, H... Start Date: 06/24/20 Stop Date: 07/24/20 Status: Orderedalbuterol CFC free 90 mcg/inh inhalation aerosol 2, puffs, Inhalation, Every 6 hours, PRN, # 1 each, Refills 0, Tot. Refills 0, Maintenance, 06/20/2113:21:00 EDT, Aerosol, Route to Pharmacy Electronically, [id number], [id number], 170, cm, 06/20/20 12:13:00 EDT, Hei... Start Date: 06/20/20 Status: Ordereddiclofenac sodium 50 mg oral delayed release tablet 1 tablet, By Mouth, 2 times a day, PRN as needed for pain, with food, # 60 tablet, 1 Refills, Maintenance, 05/20/20 13:57:00 EST, [facility]/pharmacy #[id number], 170, cm, 05/20/20 13:40:00 EST, Height, 104, kg, 12/25/19 0:46:00 EDT, Dry Weight Start Date: 05/20/20 Status: Orderedergocalciferol 88159 iu oral capsule See Instructions, TAKE 1 CAPSULE BY MOUTH ONCE WEEKLY, # 12 capsule, Refills 0, Tot. Refills 0, SoftStop, 01/05/20 22:59:00 EDT, Instructions Replace Required Details, Route to Pharmacy Electronically, [facility]/pharmacy #[id number], 170, cm, 12/25/19 0:46:00 ED... Start Date: 01/05/20 Status: Orderedfenofibrate 160 mg oral tablet 1 tablet, By Mouth, Daily, # 90 tablet, 1 Refills, Maintenance, 01/11/20 12:49:00 EDT, [facility]/pharmacy #[id number], 170, cm, 01/10/20 9:00:00 EDT, Height, [...] 14:10:00 EDT, Route to Pharmacy Electronically, [facility]/pharmacy #[id number], 170, cm, 11/02/19 13:53:00 EDT, Height, 103.7, kg, 10/08/19 20:47:00 EDT,... Start Date: 11/02/19 Status: Orderedglimepiride 2 mg oral tablet 1 tablet, By Mouth, Daily, # 90 tablet, 0 Refills, Maintenance, 05/20/20 13:58:00 EST, [facility]/pharmacy #[id number], 170, cm, 05/20/20 13:40:00 EST, Height, 104, kg, 12/25/19 0:46:00 EDT, Dry Weight Start Date: 05/20/20 Status: OrderedmetFORMIN 1000 mg oral tablet 1 tablet, By Mouth, 2 times a day with meals, # 180 tablet, 1 Refills, Maintenance, 04/16/20 9:02:00EST, [facility]/pharmacy #[id number], 170, cm, 01/24/20 14:13:00 EDT, Height, 104, kg, 12/25/19 0:46:00 EDT, Dry Weight Start Date: 04/16/20 Status: Orderedomeprazole 20 mg oral enteric coated capsule 1 capsule, By Mouth, 2 times a day, # 180 capsule, 1 Refills, Maintenance, 04/10/20 7:29:00 EST, [facility]/pharmacy #[id number], 170, cm, 01/24/20 14:13:00 EDT, Height, 104, kg, 12/25/19 0:46:00 EDT, Dry Weight Start Date: 04/10/20 Status: OrderedpredniSONE 20 mg oral tablet 1 tablet = 20 mg, By Mouth, Daily, for 5 days, # 5 tablet, 0 Refills, Acute 06/29/20 18:07:00 EDT, 06/24/20 18:07:00 EDT, Tablet, [facility]/pharmacy #[id number], Partial fill upon patient request if the prescription is for a schedule II opioid drug., 170, cm, ... Start Date: 06/24/20 Stop Date: 06/29/20 Status: OrderedTessalon Perles 100 mg oral capsule 1 capsule = 100 mg, By Mouth, 3 times a day, PRN as needed for cough, for 7 days, # 21 capsule, 0 Refills, Acute 07/01/20 18:07:00 EDT, 06/24/20 18:07:00 EDT, Capsule, [facility]/pharmacy #[id number], Partial fill upon patient request if the prescription is for a... Start Date: 06/24/20 Stop Date: 07/01/20 Status: OrderedTrulicity Pen 1.5 mg/0.5 mL subcutaneous solution = 1.5 mg, Subcutaneous Injection, Every week, rotate injection sites, # 2 mL, 5 Refills, Maintenance, 05/28/20 17:30:00 EST, Solution, [facility]/pharmacy #[id number], 170, cm, 05/20/20 13:40:00 EST, Height, [...] Dates Health Clinical Infor mant Status Service Acute URI Discharge 3/25/21 Diagnosis Controlled type 2 Discharge 06/20/20 diabetes mellitus Diagnosis Asthma Discharge 06/20/20 Diagnosis Obesity Discharge 06/20/20 Diagnosis Vital Signs Most recent to oldest [Reference Range]: 1 Height 170 cm (06/20/20 12:13 PM) Weight 103.6 kg (06/20/20 12:13 PM) Pulse Rate [55-90 bpm] 95 bpm *H* (06/20/20 12:13 PM) Body Mass Index [18.5-24.99] 35.85 *>HHI* (06/20/20 12:13 PM) Blood Pressure [90-138/55-84 mm Hg] 118/90 mm Hg (06/20/20 12:13 PM) Temperature [96.8-100.4 DegF] 97.2 DegF (06/20/20 12:13 PM) Temperature Route Oral (06/20/20 12:13 PM) Weight Obtained Via Standing scale (06/20/20 12:13 PM) Social History Social History Type Response Smoking Status Never (less than 100 in life time) entered on: 07/05/18 Sex
[2022-05-07 10:17] VITALS: BP 146/99; PULSE 90; RESP 18; TEMP 36.4; O2SAT 98; BMI 33.5
--- NOTE | 2022-05-07 10:53 | ED.ABDPAIN ---
HPI - Abdominal Pain General Chief Complaint: Abdominal Pain Stated Complaint: groin pain Time Seen by Provider: 05/07/22 10:22 Source: patient Mode of arrival: ambulatory Limitations: no limitations History of Present Illness HPI narrative: 46-year-old male presents with pubic pain. Symptoms started approximately 4-5 days ago. The pain is getting progressively worse. Is not associated with nausea vomiting. It is associated with swelling and redness. He denies passing flatus or stool since yesterday. He denies any significant bloating. Pain does radiate to his back. Sharp and achy. The pain is constant but worse with palpation and movement. He has never had pain like this before although he was told he has a small hernia which they found on a CT scan before he had his gallbladder removed. Patient denies any fevers or chills. He is diabetic. Related Data Previous Rx's Medication Instructions Recorded cephalexin 500 mg capsule 500 mg PO QID 7 days #28 caps 05/07/22 naproxen 500 mg tablet 500 mg PO BID PRN pain #20 tabs 05/07/22 Allergies Allergy/AdvReac Type Severity Reaction Status Date / Time No Known Allergies Allergy Verified 05/07/22 10:19 Review of Systems Review of Systems CONSTITUTIONAL: Denies weight loss, fever and chills. HEENT: Denies changes in vision and hearing. RESPIRATORY: Denies SOB and cough. CV: Denies palpitations no CP. GI: Denies abdominal pain, nausea, vomiting and diarrhea. Does have pubic tenderness : Denies dysuria and urinary frequency. MSK: Denies myalgia and joint pain. SKIN: Denies rash and pruritus. NEUROLOGICAL: Denies headache and syncope. PSYCHIATRIC: Denies recent changes in mood. Denies anxiety and depression. All other ROS are negative unless in HPI [facility] Social History Social History Advance Directives: No Physical Exam ED Vital Signs: Vital Signs - 24 hr 05/07/22 10:17 05/07/22 14:11 Temperature 97.6 F Pulse Rate 90 86 Respiratory Rate 18 16 Blood Pressure 146/99 H 129/82 Pulse Oximetry 98 99 Oxygen Delivery Method Room Air Room Air BMI result Body Mass Index 33.5 GEN: Well developed, no acute distress, alert, oriented HEENT: Normocephalic, atraumatic, normal external ears, nose appears normal, no oropharyngeal edema or exudates Eyes: Normal to appearance Neck: Supple, no lymphadenopathy Respiratory: Talks in complete sentences, no respiratory distress, clear to auscultation bilaterally Cardiovascular: Regular rate and rhythm, no murmurs rubs or gallops Abdomen: Soft, nontender, nondistended, no guarding, no rebound Pelvis: Pubic swelling, redness, induration, likely abscess Back: No CVA tenderness Extremities: No clubbing cyanosis or edema Neurologic: No focal neurologic deficits, cranial nerves 2-12 intact, strength is 5/5 bilaterally, gait normal Skin: No rash Procedures Abscess I/D Site: other (Pubic area) Sedation/analgesia: none Local Anesthetic: lidocaine 1% and with epi Amount of anesthesia used (mL): 4 Technique: incised with blade Amount of fluid expressed (mL): 0 Sent for culture/gram staining?: No Irrigation: Yes Packing used?: iodoform Course Course Course Narrative: 46-year-old male presents with pubic pain and tenderness. On exam there is swelling, redness and possible abscess formation. Given the fact that he is diabetic the location of his a findings, I will obtain a CT scan the abdomen pelvis to rule out deeper infection. If this is in fact an abscess, would likely perform an I and D and re-evaluate. Patient does not appear to be significantly ill to the point where he would require hospitalization. Will check routine labs. Reevaluation(s) Reevaluation #1: The workup is complete. Reviewed all results with the patient. An incision and drainage procedure was performed. Sterile packing was placed. Recommending follow-up in 2 days for packing removal and re-evaluation. There is no purulent material was obtained Time: 14:33 Medical Decision Making Medical Decision Making MDM Narrative: 46-year-old male presents with pubic pain and tenderness. On exam there is swelling, redness and possible abscess formation. Given the fact that he is diabetic the location of his a findings, I will obtain a CT scan the abdomen pelvis to rule out deeper infection. If this is in fact an abscess, would likely perform an I and D and re-evaluate. Patient does not appear to be significantly ill to the point where he would require hospitalization. Will check routine labs. Differential Diagnosis Differential Diagnoses: The differential diagnosis associated with the presentation includes (Abscess, cellulitis, Gangrene, pelvic pain) Abscess Admission/Observation Consideration of admission/observation: Escalation of care including admission/observation considered Lab Data MDM Lab Attestation statement: I reviewed the patient's lab results. 05/07/22 10:56 05/07/22 10:56 Labs: Lab Results 05/07/22 05/07/22 05/07/22 Range/Units 10:56 10:56 10:56 WBC 7.0 (4.8-10.8) X10*3/uL RBC 5.12 (4.60-5.80) X10*6/uL Hgb 16.3 (14.0-18.0) g/dl Hct 44.9 (42.0-52.0) % MCV 87.7 (80.0-98.0) fL MCH 31.8 (27.0-33.0) pg MCHC 36.3 H (31.0-36.0) g/dl RDW 11.8 (11.0-16.0) % Plt Count 220 (160-400) X10*3/uL MPV 11.4 (9.4-12.4) fL Immature Gran % (Auto) 0.1 (0.0-0.4) % Neut % (Auto) 63.9 (45-73) % Lymph % (Auto) 25.6 (20-40) % [place] % (Auto) 7.1 (2-11) % Eos % (Auto) 2.3 (0-4) % Baso % (Auto) 1.0 (0-2) % Lymph # (Auto) 1.8 (1.2-4.9) X10*3/uL [place] # (Auto) 0.5 (0.1-1.2) X10*3/uL Eos # (Auto) 0.2 (0.0-0.4) X10*3/uL Baso # (Auto) 0.1 (0.0-0.2) X10*3/uL Abs Immat Gran (auto) 0.01 (0.00-0.03) X10*3/uL Absolute Neuts (auto) 4.4 (2.0-8.3) x10*3/uL Absolute Nucleated RBC 0.000 (0.0-0.012) X10*3/uL Nucleated RBC % (auto) 0.0 (0.0-0.2) /100WBC Sodium 137 (135-145) mmol/L Potassium 4.4 (3.3-5.1) mmol/L Chloride 101 (96-108) mmol/L Carbon Dioxide 27 (22-29) mmol/L Anion Gap 13 (12-20) BUN 9 (9-16) mg/dL Creatinine 0.98 (0.5-1.4) mg/dL Estim Creat Clear Calc 105.6 Estimated GFR > 60 Random Glucose 194 H (60-115) mg/dL Lactic Acid 1.1 (0.5-2.0) mmol/L Calcium 9.6 (8.4-10.2) mg/dL Independent Interpretation I performed an independent interpretation of an: CT Scan (Abdomen pelvis: Cellulitic and phlegmonous changes to the pubic area. No discrete abscess identified) Radiology Impression Discussion of test interpretation with radiology: I have reviewed the radiologist's reading. (IMPRESSION: No significant abnormality. Fleischner guidelines were followed. Dictated By:Nasir Hernandez MDSigned By:<Electronically signed by Nasir Hernandez MD in [place]>05/07/22 [id number]) Medications Administered Discontinued Medications Generic Name Dose Route Start Last Admin Trade Name Freq PRN Reason Stop Dose Admin Sodium Chloride 1,000 mls @ 999 mls/hr 05/07/22 11:00 05/07/22 11:56 Ns IV 05/07/22 12:00 Infused .Q1H1M KATELYN Infusion Iohexol 85 ml 05/07/22 12:06 05/07/22 12:06 Iohexol 350 Mg/Ml 75 Ml Infus..Btl IV 05/07/22 12:07 85 ml ONCE ONE Administration Ketorolac Tromethamine 15 mg 05/07/22 10:48 05/07/22 11:03 Ketorolac Tromethamine 15 Mg/Ml Vial IVPUSH 05/07/22 10:49 15 mg ONCE ONE Administration Discharge Plan Discharge Clinical Impression: Abscess Patient Disposition: Home, Self-Care Instructions: Abscess (ED), Abscess Follow-up (ED), Abscess Incision and Drainage (DC) Additional Instructions: Return in 2 days for re-evaluation and possible packing removal Prescriptions: New cephalexin 500 mg capsule 500 mg PO QID 7 Days Qty: 28 0RF naproxen 500 mg tablet 500 mg PO BID PRN (Reason: pain) Qty: 20 0RF Stand Alone Forms: Work/School Release
[2022-05-07] MEDS: 0.9 % Sodium Chloride 1,000 ML 999 ML IV (11:01)
[2022-05-07 11:02] LABS: MANUAL DIFF FLAG NO
[2022-05-07] MEDS: Ketorolac Tromethamine 15 MG/ML VIAL IVPUSH (11:03)
[2022-05-07 11:04] LABS: Basophils Absolute Auto 0.1 X10*3/uL (0.0-0.2); Eosinophils Absolute Auto 0.2 X10*3/uL (0.0-0.4); Eosinophils Percent Auto 2.3 % (0-4); Hematocrit 44.9 % (42.0-52.0); Hemoglobin 16.3 g/dl (14.0-18.0); Imm Gran Abs Auto 0.01 X10*3/uL (0.00-0.03); Imm Gran Pct Auto 0.1 % (0.0-0.4); Lymphocytes Absolute Auto 1.8 X10*3/uL (1.2-4.9); Lymphocytes Percent Auto 25.6 % (20-40); Mean Corpuscular HGB Conc 36.3 g/dl (31.0-36.0); Mean Corpuscular Hemoglobin 31.8 pg (27.0-33.0); Mean Corpuscular Volume 87.7 fL (80.0-98.0); Mean Platelet Volume 11.4 fL (9.4-12.4); Monocytes Absolute Auto 0.5 X10*3/uL (0.1-1.2); Monocytes Percent Auto 7.1 % (2-11); Neutrophils Absolute Auto 4.4 x10*3/uL (2.0-8.3); Neutrophils Percent Auto 63.9 % (45-73); Platelet Count 220 X10*3/uL (160-400); Red Blood Count 5.12 X10*6/uL (4.60-5.80); Red Cell Distribution Width 11.8 % (11.0-16.0)
[2022-05-07 11:22] LABS: Lactic Acid 1.1 mmol/L (0.5-2.0)
[2022-05-07 11:26] LABS: Anion Gap 13 (12-20); Blood Urea Nitrogen 9 mg/dL (9-16); Calcium 9.6 mg/dL (8.4-10.2); Carbon Dioxide 27 mmol/L (22-29); Chloride 101 mmol/L (96-108); Creatinine Clr Calc Pharmacy 105.6; Estimated Glomerular Filt Rate > 60; Glucose Random 194 mg/dL (60-115); Potassium 4.4 mmol/L (3.3-5.1); Sodium 137 mmol/L (135-145)
[2022-05-07] MEDS: iohexoL 350 MG/ML 75 ML INFUS..BTL 85 ML IV (12:06)
[2022-05-07 14:11] VITALS: BP 129/82; PULSE 86; RESP 16; O2SAT 99
== END 2022-05-07 14:47 | disposition home or self-care (01) ==
PROVIDERS: Emergency Provider Emergency Medicine; PCP Internal Medicine
DX: L02.214 Cutaneous abscess of groin (principal); R10.30 Lower abdominal pain, unspecified
CPT/HCPCS: 10060; 36415; 74177; 80048; 83605; 85025; 96361; 96374; 99284; 99285; J1885; Q9967

== ENCOUNTER 2022-05-09 10:53 | Emergency (ER) | payer OTHER, SELFPAY ==
--- NOTE | 2022-05-09 11:38 | ED_ITS ---
HPI - Recheck/Abnormal Lab/Rx General Chief Complaint: Wound/Laceration <MASSIMO Franco - Last Filed: 05/09/22 11:40> Stated Complaint: abscess recheck <MASSIMO Franco - Last Filed: 05/09/22 11:40> Time Seen by Provider: 05/09/22 13:08 <MASSIMO Franco - Last Filed: 05/09/22 11:40> Source: patient <MASSIMO Tavarez - Last Filed: 05/09/22 17:33> Mode of arrival: ambulatory <MASSIMO Tavarez - Last Filed: 05/09/22 17:33> Limitations: no limitations <MASSIMO Tavarez Last Filed: 05/09/22 17:33> History of Present Illness HPI narrative: Patient is a 46 year old assigned male at with no reported medical history presenting to the emergency department today for abscess packing removal and a possible additional abscess. Patient states that he was seen here a few days ago when he had a suprapubic abscess drained and packing placed. Patient states that he was told to come back and get his packing removed but now he's noticed he may have another abscess above the previous one. Patient denies any dizziness, lightheadedness, abdominal pain, nausea, vomiting, fever, chills, blurry vision, double vision, loss of vision, chest pain, difficulty breathing, shortness of breath, back pain, night sweats, pain with urination, increased urinary frequency, increased urinary urgency, blood in his urine or stool, syncope or a near syncopal episode, recent trauma or falls, bowel incontinence, bladder incontinence, bowel retention, bladder retention, or any other complaints at this time. Patient states that he has been taking his antibiotics as prescribed. <MASSIMO Tavarez - Last Filed: 05/09/22 17:33> MD complaint: wound re-check <MASSIMO Tavarez Last Filed: 05/09/22 17:33> Initial visit (ago): day(s) <MASSIMO Tavarez Last Filed: 05/09/22 17:33> Initial visit for: abscess <MASSIMO Tavarez Last Filed: 05/09/22 17:33> Context: planned re-check <MASSIMO Tavarez Last Filed: 05/09/22 17:33> Associated symptoms: none <MASSIMO Tavarez Last Filed: 05/09/22 17:33> Related Data Home Medications: Previous Rx's Medication Instructions Recorded cephalexin 500 mg capsule 500 mg PO QID 7 days #28 caps 05/07/22 naproxen 500 mg tablet 500 mg PO BID PRN pain #20 tabs 05/07/22 <MASSIMO Franco Last Filed: 05/09/22 11:40> Allergies/Adverse Reactions: Allergies Allergy/AdvReac Type Severity Reaction Status Date / Time No Known Allergies Allergy Verified 05/07/22 10:19 <MASSIMO Franco Last Filed: 05/09/22 11:40> Review of Systems Constitutional: Constitutional: Reports no additional constitutional complaints, Denies chills, Denies fever(s) and Denies night sweats <MASSIMO Tavarez Last Filed: 05/09/22 17:33> Eyes: Eyes: Reports no additional eye complaints, Denies blurry vision, Denies change in vision, Denies diplopia, Denies eye discharge, Denies loss of vision and Denies eye pain <MASSIMO Tavarez Last Filed: 05/09/22 17:33> ENT: Denies dizziness <MASSIMO Tavarez Last Filed: 05/09/22 17:33> Cardiovascular: Cardiovascular: Reports no additional cardiovascular complaints, Denies chest pain, Denies lightheadedness, Denies Loss of Consciousness and Denies dyspnea <MASSIMO Tavarez Last Filed: 05/09/22 17:33> Respiratory: Respiratory: Reports no additional respiratory complaints and Denies dyspnea <MASSIMO Tavarez Last Filed: 05/09/22 17:33> Gastrointestinal: Gastrointestinal: Reports no additional gastrointestinal complaints, Denies abdominal pain, Denies melena, Denies hematochezia, Denies change in bowel habits and Denies change in stool character <MASSIMO Tavarez Last Filed: 05/09/22 17:33> Genitourinary: Genitourinary: Reports no additional male genitourinary complaints, Denies hematuria, Denies oliguria, Denies difficulty urinating, Denies dysuria, Denies urinary frequency, Denies urinary hesitancy, Denies urinary incontinence and Denies urinary urgency <MASSIMO Tavarez - Last Filed: 05/09/22 17:33> Comments: packing present in previous abscess <MASSIMO Tavarez - Last Filed: 05/09/22 17:33> Musculoskeletal: Musculoskeletal: Reports no additional musculoskeletal complaints, Denies numbness and Denies tingling <MASSIMO Tavarez - Last Filed: 05/09/22 17:33> Neurologic: Denies dizziness, Denies loss of vision, Denies numbness and Den ies tingling <MASSIMO Tavarez - Last Filed: 05/09/22 17:33> Psychiatric: Psychiatric: Reports no additional psychiatric complaints <MASSIMO Tavarez - Last Filed: 05/09/22 17:33> Endocrine: Endocrine: Reports no additional endocrine complaints <MASSIMO Tavarez - Last Filed: 05/09/22 17:33> Hematologic/Lymphatic: Hematologic/Lymphatic: Reports no additional hematologic/lymphatic complaints <MASSIMO Tavarez - Last Filed: 05/09/22 17:33> Allergic/Immunologic: Allergic/Immunologic: Reports no additional allergic/immunologic complaints <MASSIMO Tavarez - Last Filed: 05/09/22 17:33> [facility] Past Medical History Attestation statement: The following information was validated with the patient. <MASSIMO Tavarez - Last Filed: 05/09/22 17:33> Source: old records reviewed and nursing notes reviewed <MASSIMO Tavarez - Last Filed: 05/09/22 17:33> Social History Social History: Social History Advance Directives: No Advance Directives Information Provided: Yes <MASSIMO Franco - Last Filed: 05/09/22 11:40> Physical Exam Vital Signs: Vital Signs: Last Vital Signs Temp 97.4 F 05/09/22 11:39 Pulse 100 05/09/22 11:39 Resp 18 05/09/22 11:39 BP 129/85 05/09/22 11:39 Pulse Ox 95 05/09/22 11:39 O2 Del Method 05/09/22 11:39 BMI result Body Mass Index 33.5 <MASSIMO Franco - Last Filed: 05/09/22 11:40> Vital Signs: Last Vital Signs Temp 97.4 F 05/09/22 11:39 Pulse 100 05/09/22 11:39 Resp 18 05/09/22 11:39 BP 129/85 05/09/22 11:39 Pulse Ox 95 05/09/22 11:39 O2 Del Method 05/09/22 11:39 BMI result Body Mass Index 33.5 <MASSIMO Tavarez - Last Filed: 05/09/22 17:33> Const: General: cooperative, no acute distress, alert and awake <MASSIMO Tavarez - Last Filed: 05/09/22 17:33> Nutritional Appearance: well nourished <MASSIMO Tavarez - Last Filed: 05/09/22 17:33> Orientation/consciousness: patient oriented x3 <MASSIMO Tavarez - Last Filed: 05/09/22 17:33> Limitations: no limitations <MASSIMO Tavarez - Last Filed: 05/09/22 17:33> HEENT: Head: Yes normal to inspection and Yes atraumatic <MASSIMO Tavarez - Last Filed: 05/09/22 17:33> Ears: hearing grossly normal bilaterally and external ears normal <MASSIMO Tavarez - Last Filed: 05/09/22 17:33> General nose exam: Normal external nose present, no nasal discharge noted and no epistaxis <MASSIMO Tavarez - Last Filed: 05/09/22 17:33> Face and sinus: Yes normal facial exam, No abrasion and No laceration <MASSIMO Tavarez - Last Filed: 05/09/22 17:33> Mouth: Normal oral and palatal mucosa present, no drooling and no muffled voice <MASSIMO Tavarez - Last Filed: 05/09/22 17:33> Eyes: General: appearance normal, both eyes and all related structures <MASSIMO Tavarez - Last Filed: 05/09/22 17:33> Periorbital: periorbital findings normal <MASSIMO Tavarez - Last Filed: 05/09/22 17:33> Eyelids: Yes eyelids normal <MASSIMO Tavarez - Last Filed: 05/09/22 17:33> Conjunctivae: conjunctivae normal <Daishaulises FisherMASSIMO dodd - Last Filed: 05/09/22 17:33> Pupils: Equal, round and reactive pupils present <Daishaulises Fisherju NV - Last Filed: 05/09/22 17:33> EOM: EOMs intact bilaterally <Daisha Veronica [place] - Last Filed: 05/09/22 17:33> Neck: Neck: Yes normal visual inspection, Yes full ROM and Yes no lymphadenopathy <Daisha Veronica NV - Last Filed: 05/09/22 17:33> Chest: Chest palpation & inspection: normal inspection of the chest <MASSIMO Tavarez - Last Filed: 05/09/22 17:33> Resp: Effort & Inspection: normal respiratory effort and able to speak in complete sentences <Daisha Martin [place] - Last Filed: 05/09/22 17:33> Auscultation: clear to auscultation bilaterally <Daisha Martin [place] - Last Filed: 05/09/22 17:33> Cardio: Rate: regular rate <Daisha Veronica NV - Last Filed: 05/09/22 17:33> Rhythm: regular rhythm <Daisha Veronica NV - Last Filed: 05/09/22 17:33> GI: Inspection: Yes normal to inspection <Daisha Veronica NV - Last Filed: 05/09/22 17:33> Palpation (GI): Soft to palpation, not firm, nontender, no guarding and not rigid <Daisha Martin [place] - Last Filed: 05/09/22 17:33> : Male genitals images: 1. Abscess with packing present, surrounding geno ration, no fluctuance <Vanita Murillo [place] - Last Filed: 05/09/22 11:40> Male genitals images: 1. Abscess with packing present, surrounding induration, no fluctuance <Daisha Martin [place] - Last Filed: 05/09/22 17:33> Neuro: General: patient oriented x3 and moves all extremities <MASSIMO Tavarez - Last Filed: 05/09/22 17:33> Cranial nerves: Yes Equal, round and reactive pupils present <MASSIMO Tavarez - Last Filed: 05/09/22 17:33> Cognition (Neuro): normal cognition <Daisha MartinMASSIMO - Last Filed: 05/09/22 17:33> Motor exam (neuro): 5/5 motor strength present throughout <Daisha MartinMASSIMO - Last Filed: 05/09/22 17:33> Sensory Exam: Normal double simultaneous stimulation for sensation <Daisha MartinMASSIMO - Last Filed: 05/09/22 17:33> Coordination: [id number] test normal <Daisha MartinMASSIMO - Last Filed: 05/09/22 17:33> Extrem: General: Yes normal to inspection, Yes full ROM and Yes capillary refill normal <Daisha FisherMASSIMO dodd - Last Filed: 05/09/22 17:33> Psych: Appearance: grossly normal <Daisha MartinMASSIMO - Last Filed: 05/09/22 17:33> Mental Status: mental status grossly normal <Daisha FisherMASSIMO dodd - Last Filed: 05/09/22 17:33> Affect: normal affect <Daisha FisherMASSIMO dodd - Last Filed: 05/09/22 17:33> Attitude: cooperative <Daisha FisherMASSIMO dodd - Last Filed: 05/09/22 17:33> Thought process: Normal thought process present <Daisha FisherMASSIMO dodd - Last Filed: 05/09/22 17:33> Thought content: Normal thought content present <Daisha FisherMASSIMO dodd - Last Filed: 05/09/22 17:33> Insight: Good insight present (Psych) <Daisha MartinMASSIMO dodd - Last Filed: 05/09/22 17:33> Course Course Course Narrative: RME-11:40am 46yoM presenting to the ER for recheck abscess that was I indeed and pack removal on 05/07/2022. Reports he is taking his antibiotics as prescribed. Denies any fevers although reports he developed a new abscess near the abscess that was I and D. he denied any other symptoms. Plan: Refer exam to [facility] provider <MASSIMO Franco - Last Filed: 05/09/22 11:40> Medical Decision Making Medical Decision Making MDM Narrative: Patient is a 46 year old assigned male at with no reported medical history presenting to the emergency department today with packing removal and a possible additional abscess. Patient's physical exam showed a previously drained abscess with packing present and surround indurated skin with no fluctuance. I explained my physical exam findings to the patient. I answered all questions asked by the patient. Patient's packing was removed. I stressed the importance o f the patient taking his medication as prescribed. I stressed the importance of the patient following up with his primary care provider and a general surgeon. I stressed the importance of the patient returning to the emergency department immediately if his symptoms were to worsen or if he were to develop any dizziness, shortness of breath, difficulty breathing, chest pain, blurry vision, loss of vision, nausea, vomiting, abdominal pain, fever, chills, back pain, or any other complaints. Patient verbalized agreement and understanding with this treatment plan and discharge. <MASSIMO Tavarez - Last Filed: 05/09/22 17:33> Differential Diagnosis Differential Diagnoses: The differential diagnosis associated with the presentation includes <MASSIMO Tavarez - Last Filed: 05/09/22 17:33> abscess, cyst, packing removal <MASSIMO Taavrez Last Filed: 05/09/22 17:33> Procedures Procedure Narrative Procedure Narrative: Packing removed from previous incised and drained abscess. <MASSIMO Tavarez Last Filed: 05/09/22 17:33> Discharge Plan Discharge Clinical Impression: Abscess <MASSIMO Franco Last Filed: 05/09/22 11:40> Patient Disposition: Home, Self-Care <MASSIMO Franco Last Filed: 05/09/22 11:40> Instructions: Abscess (ED) <MASSIMO Franco Last Filed: 05/09/22 11:40> Additional Instructions: Follow up with your primary care provider and a general surgeon. Return to the emergency department immediately if your symptoms worsen or if you develop any dizziness, shortness of breath, difficulty breathing, chest pain, blurry vision, loss of vision, nausea, vomiting, abdominal pain, fever, chills, back pain, or any other complaints. <MASSIMO Franco - Last Filed: 05/09/22 11:40> Prescriptions: No Action cephalexin 500 mg capsule 500 mg PO QID 7 Days Qty: 28 0RF naproxen 500 mg tablet 500 mg PO BID PRN (Reason: pain) Qty: 20 0RF <MASSIMO Franco - Last Filed: 05/09/22 11:40> Referrals: [facility] General Surgeons [Provider Group] (Call to establish and follow up with a general surgeon. ) Dino Hall MD [Primary Care Provider] - <MASSIMO Franco - Last Filed: 05/09/22 11:40> Stand Alone Forms: Work/School Release <MASSIMO Franco - Last Filed: 05/09/22 11:40> Interventions: ED Discharge Assessment Last Done: 05/09/22 13:51 <MASSIMO Franco - Last Filed: 05/09/22 11:40> Discharge Date/Time: 05/09/22 13:51 <MASSIMO Franco - Last Filed: 05/09/22 11:40> Print Language: Nepali <MASSIMO Franco - Last Filed: 05/09/22 11:40>
[2022-05-09 11:39] VITALS: BP 129/85; PULSE 100; RESP 18; TEMP 36.3; O2SAT 95; BMI 33.5
== END 2022-05-09 13:51 | disposition home or self-care (01) ==
PROVIDERS: Emergency Provider Student in an Organized Health Care Education/Training Program; PCP Internal Medicine
DX: Z48.00 Encounter for change or removal of nonsurgical wound dressing (principal); L02.214 Cutaneous abscess of groin
CPT/HCPCS: 99282

== ENCOUNTER → 2022-05-29 13:09 | Outpatient (BNVA) | payer OTHER, SELFPAY | PROVIDERS: PCP Internal Medicine; Referring Provider Internal Medicine; Visit Provider Surgery | DX: L73.9 Follicular disorder, unspecified (principal) | CPT/HCPCS: 99202 ==

== ENCOUNTER 2022-09-08 15:19 | Emergency (ER) | payer OTHER, SELFPAY ==
--- NOTE | 2022-09-08 | ECG_ITS ---
Test Reason : cp Blood Pressure : / mmHG Vent. Rate : 087 BPM Atrial Rate : 087 BPM P-R Int : 150 ms QRS Dur : 092 ms QT Int : 336 ms P-R-T Axes : 033 041 021 degrees QTc Int : 404 ms Normal sinus rhythm with sinus arrhythmia Normal ECG No previous ECGs available Referred By: Generic ED Physician Electronically Signed By:ANGELITA GUIDRY MD
--- NOTE | ~2022-09-08 | XR_ITS ---
EXAMINATION: XR WRIST, LEFT XR HAND, LEFT CLINICAL INFORMATION: Finger stiffness and wrist pain COMPARISON: None available. TECHNIQUE: PA, lateral, and oblique views of the left wrist and PA, lateral, and oblique views of the left hand FINDINGS: LEFT WRIST: The bones and soft tissues are normal. No fracture. Alignment is anatomic. Joint spaces are maintained. No erosions or soft tissue calcifications. LEFT HAND: The bones and soft tissues are unremarkable aside from some possible mild subluxation at the PIP joint of the fifth digit, not well imaged on the lateral radiograph. No fracture. Joint spaces are maintained. No erosions or soft tissue calcifications. XR/XR hand wrist LT IMPRESSION: 1. Normal left wrist. 2. Question of mild subluxation at the PIP joint of the fifth digit. 3. Repeat study with a lateral radiograph of the fifth digit would be helpful if this is of clinical concern.
[2022-09-08 17:10] VITALS: BP 135/93; PULSE 94; RESP 18; TEMP 36; O2SAT 96; BMI 33.5
[2022-09-08 17:39] LABS: MANUAL DIFF FLAG NO
[2022-09-08 17:55] LABS: Alanine Aminotransferase 47 U/L (0-40); Albumin Level 4.4 g/dL (3.5-5.0); Alkaline Phosphatase 78 U/L (39-117); Anion Gap 13 (12-20); Aspartate Amino Transferase 22 U/L (5-37); Bilirubin Total 0.6 mg/dL (0.0-1.0); Blood Urea Nitrogen 13 mg/dL (9-16); Calcium 9.8 mg/dL (8.4-10.2); Carbon Dioxide 27 mmol/L (22-29); Chloride 106 mmol/L (96-108); Creatinine Clr Calc Pharmacy 100.4; Estimated Glomerular Filt Rate > 60; Glucose Random 147 mg/dL (60-115); Potassium 4.5 mmol/L (3.3-5.1); Sodium 141 mmol/L (135-145); Total Protein 7.8 g/dL (6.5-8.0)
[2022-09-08 18:05] LABS: Troponin-I High Sensitivity < 2.7 ng/L (<3.5-35.0)
--- NOTE | 2022-09-08 18:53 | ED_ITS ---
HPI - Extremity Problem General Chief complaint: Extremity Injury, Upper Stated complaint: L arm pain for 3 days Time Seen by Provider: 09/08/22 18:49 Source: patient Mode of arrival: ambulatory Limitations: no limitations History of Present Illness HPI Narrative: Patient is a 47-year-old male with history of DM presenting to ED with complaint of left wrist pain for the past two months which has begun to radiate up left arm over the past 3 days. 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 He has seen his PCP for the wrist pain and had an x-ray. Now he states the pain is radiating up his arm to his shoulder. He denies any fevers. He reports that he recently ran out of his gabapentin. He denies any chest pain or dyspnea. MD Complaint: extremity pain Onset (ago): month(s) Pain Consistency: constant Location: left Severity scale (1-10): 8 Quality: burning Radiation: proximal Relieving factors: rest Exacerbating factors: weight bearing Associated symptoms: denies other symptoms Related Data Home Medications Medication Instructions Recorded Confirmed albuterol sulfate 90 mcg/actuation 0 mcg inhalation 05/29/22 06/01/22 aerosol inhaler (Ventolin HFA) blood sugar diagnostic (FreeStyle #10 ea 05/29/22 06/01/22 Lite Strips) dulaglutide 1.5 mg/0.5 mL mg subcut QWEEK 05/29/22 06/01/22 subcutaneous pen injector (Trulicity) ergocalciferol (vitamin D2) 1,250 1,250 mcg PO QWEEK 05/29/22 06/01/22 mcg (50,000 unit) capsule fenofibrate 160 mg tablet 160 mg PO DAILY 05/29/22 06/01/22 flash glucose scanning reader #1 ea 05/29/22 06/01/22 (FreeStyle Arnold 2 [place]) flash glucose sensor (FreeStyle #1 ea 05/29/22 06/01/22 Arnold 2 Sensor kit) gabapentin 300 mg capsule 300 mg PO BID 05/29/22 06/01/22 metformin 1,000 mg tablet 1,000 mg PO BID 05/29/22 06/01/22 omeprazole 20 mg capsule,delayed 20 mg PO DAILY 05/29/22 06/01/22 release Previous Rx's Medication Instructions Recorded naproxen 500 mg tablet 500 mg PO BID PRN pain #20 tabs 05/07/22 prednisone 20 mg tablet 40 mg PO DAILY #10 tabs 09/08/22 Allergies Allergy/AdvReac Type Severity Reaction Status Date / Time No Known Allergies Allergy Verified 09/08/22 17:09 Review of Systems Review of Systems: As per HPI. Yes all other systems are reviewed and are negative Constitutional: Constitutional: Reports as per HPI [facility] Past Medical History Medical History (Updated 09/08/22 @ 20:43 by Arianne Herrera NP) Asthma Diabetes type 2, controlled Surgical History History of cholecystectomy History of elbow surgery History of release of tendon Family History Family History Mother Breast cancer Social History Social History Alcohol intake: current Alcohol intake frequency: holidays/special occasions only Patient Tobacco Use Status: Never used Tobacco Smoked in Last 30 Days: No Use of substances other than those prescribed or required for medical reasons: No Advance Directives: No Advance Directives Information Provided: No Physical Exam Vital Signs: Vital Signs: Last Vital Signs Temp 97.9 F 09/08/22 19:45 Pulse 90 09/08/22 19:45 Resp 18 09/08/22 19:45 BP 138/98 H 09/08/22 19:45 Pulse Ox 96 09/08/22 19:45 O2 Del Method Room Air 09/08/22 19:45 BMI result Body Mass Index 33.5 Vital signs have been reviewed and appear to be correct. Blood pressure mildly elevated. Heart rate normal. Respiratory rate normal. Temperature normal. Oxygen saturation normal. Const: General: cooperative, healthy appearing and no acute distress Orientation/consciousness: oriented to person, oriented to place, oriented to time and patient oriented x3 Limitations: no limitations HEENT: Head: Yes normocephalic and Yes atraumatic Ears: external ears normal General nose exam: Normal external nose present Face and sinus: Yes face symmetric Mouth: oropharynx normal and moist mucous membranes Throat: Yes uvula midline Eyes: Pupils: Equal, round and reactive pupils present Neck: Neck: Yes normal visual inspection and Yes supple Resp: Effort & Inspection: normal respiratory effort and able to speak in complete sentences Auscultation: clear to auscultation bilaterally Cardio: Rate: regular rate Rhythm: regular rhythm Heart sounds: S1 normal heart sound present and S2 normal heart sound present GI: Palpation (GI): Soft to palpation and nontender Auscultation: normoactive bowel sounds : General: Yes no CVA tenderness Back/Spine/Pelvis: Back: no CVA tenderness Skin: General skin exam: elasticity normal and turgor normal Neuro: General: oriented to person, oriented to place, oriented to time, patient oriented x3, moves all extremities, no focal motor deficits and CN's II- XI intact bilaterally Cranial nerves: Yes Equal, round and reactive pupils present Cognition (Neuro): normal cognition Extrem: General: Yes full ROM, Yes no pedal edema and Yes no calf tenderness Right upper extremity: normal to inspection, full ROM and normal capillary refill Left upper extremity: normal to inspection, full ROM, normal capillary refill, shoulder/upper arm Details: inspection abnormal and normal ROM, elbow/forearm Details: normal to inspection and normal ROM and wrist distal anterior Details: normal to inspection and radial pulse present; no deformity, Tinel's positive and Phalen's positive Psych: Mental Status: mental status grossly normal Affect: normal affect Thought process: Normal thought process present Medical Decision Making Medical Decision Making [facility] Narrative: Patient is a 47-year-old male with history of DM presenting to ED with complaint of left wrist pain for the past two months which has begun to radiate up left arm over the past 3 days. On exam patient is awake, A+Ox3, mildly elevated BP, VS otherwise WNL, full ROM to left upper extremity, increased pain with ROM of wrist and fingers of left hand, positive Tinel and Phalen. Likely carpal tunnel or median nerve inflammation related to repetitive stress at his work. Also considered ACS given radiation to entire left arm. EKG reveals normal sinus rhythm, troponin negative. Patient prescribed short course of prednisone, provided with wrist brace, and instructed to follow up with PCP. Return prec autions discussed at bedside. Differential Diagnosis Differential Diagnoses: The differential diagnosis associated with the presentation includes As above. Lab Data [facility] Lab Attestation statement: I reviewed the patient's lab results. 09/08/22 17:32 09/08/22 17:32 Labs: Lab Results 09/08/22 09/08/22 09/08/22 Range/Units 17:32 17:32 17:32 WBC 8.0 (4.8-10.8) X10*3/uL RBC 5.10 (4.60-5.80) X10*6/uL Hgb 15.9 (14.0-18.0) g/dl Hct 45.2 (42.0-52.0) % MCV 88.6 (80.0-98.0) fL MCH 31.2 (27.0-33.0) pg MCHC 35.2 (31.0-36.0) g/dl RDW 11.9 (11.0-16.0) % Plt Count 249 (160-400) X10*3/uL MPV 11.6 (9.4-12.4) fL Immature Gran % (Auto) 0.2 (0.0-0.4) % Neut % (Auto) 62.3 (45-73) % Lymph % (Auto) 28.3 (20-40) % [place] % (Auto) 5.7 (2-11) % Eos % (Auto) 2.9 (0-4) % Baso % (Auto) 0.6 (0-2) % Lymph # (Auto) 2.3 (1.2-4.9) X10*3/uL [place] # (Auto) 0.5 (0.1-1.2) X10*3/uL Eos # (Auto) 0.2 (0.0-0.4) X10*3/uL Baso # (Auto) 0.1 (0.0-0.2) X10*3/uL Abs Immat Gran (auto) 0.02 (0.00-0.03) X10*3/uL Absolute Neuts (auto) 5.0 (2.0-8.3) x10*3/uL Absolute Nucleated RBC 0.000 (0.0-0.012) X10*3/uL Nucleated RBC % (auto) 0.0 (0.0-0.2) /100WBC Sodium 141 (135-145) mmol/L Potassium 4.5 (3.3-5.1) mmol/L Chloride 106 (96-108) mmol/L Carbon Dioxide 27 (22-29) mmol/L Anion Gap 13 (12-20) BUN 13 (9-16) mg/dL Creatinine 1.02 (0.5-1.4) mg/dL Estim Creat Clear Calc 100.4 Estimated GFR > 60 Random Glucose 147 H (60-115) mg/dL Calcium 9.8 (8.4-10.2) mg/dL Total Bilirubin 0.6 (0.0-1.0) mg/dL AST 22 (5-37) U/L ALT 47 H (0-40) U/L Alkaline Phosphatase 78 (39-117) U/L Troponin I High Sens < 2.7 (<3.5-35.0) ng/L Total Protein 7.8 (6.5-8.0) g/dL Albumin 4.4 (3.5-5.0) g/dL Independent Interpretation I performed an independent interpretation of an: EKG and Plain X-Ray Interpretation: Normal sinus rhythm, rate 87 bpm, normal GA and QT intervals, no evidence of STEMI; I independently reviewed the x-ray and agree with the radiologist's interpretation. Radiology Impression Discussion of test interpretation with radiology: I have reviewed the radiologist's reading. Radiologist Impression: FINDINGS: LEFT WRIST: The bones and soft tissues are normal. No fracture. Alignment is anatomic. Joint spaces are maintained. No erosions or soft tissue calcifications.? LEFT HAND: The bones and soft tissues are unremarkable aside from some possible mild subluxation at the PIP joint of the fifth digit, not well imaged on the lateral radiograph. No fracture.? Joint spaces are maintained. No erosions or soft tissue calcifications.? XR/XR hand wrist LT IMPRESSION: 1.? Normal left wrist. 2.? Question of mild subluxation at the PIP joint of the fifth digit. 3.? Repeat study with a lateral radiograph of the fifth digit would be helpful if this is of clinical concern. External Record Review External record reviewed: Inpatient record, Office record and Outpatient record Prescription Management I considered prescription management with: Other (prednisone) Chronic Conditions Patient?s care impacted by: Diabetes Discharge Plan Discharge Clinical Impression: Arm paresthesia, left Patient Disposition: Home, Self-Care Instructions: Paresthesia (ED) Additional Instructions: You were evaluated in the emergency department for left arm pain, likely related to inflammation of your median nerve. You are being prescribed a short course of prednisone which is a steroid. You should monitor your blood glucose levels closely, as this medication can cause your glucose levels to increase. Please wear the wrist brace provided as needed. You should apply ice to your wrist for 10-15 minutes at a time several times daily, using caution not to apply ice directly to your skin. Please follow up with your PCP regarding your symptoms and to discuss restarting on gabapentin. Return to the emergency department if you develop worsening weakness or numbness to your arms or legs, chest pain, shortness of breath, or any other concerning symptoms. Prescriptions: New prednisone 20 mg tablet 40 mg PO DAILY Qty: 10 0RF No Action naproxen 500 mg tablet 500 mg PO BID PRN (Reason: pain) Qty: 20 0RF metformin 1,000 mg tablet 1,000 mg PO BID fenofibrate 160 mg tablet 160 mg PO DAILY (DME) FreeStyle Arnold 2 [place] Misc See Rx Instructions .ROUTE .MEDSUPPLY Qty: 1 Rx Instructions: As directed albuterol sulfate [Ventolin HFA] 90 mcg/actuation HFA aerosol inhaler 0 mcg inhalation (DME) FreeStyle Lite Strips Strip See Rx Instructions .ROUTE BID Qty: 10 Rx Instructions: As directed Trulicity 1.5 mg/0.5 mL pen injector subcut QWEEK ergocalciferol (vitamin D2) 1,250 mcg (50,000 unit) capsule 1,250 mcg PO QWEEK (DME) FreeStyle Arnold 2 Sensor Kit See Rx Instructions .ROUTE .MEDSUPPLY Qty: 1 Rx Instructions: As directed gabapentin 300 mg capsule 300 mg PO BID omeprazole 20 mg capsule,delayed release(DR/EC) 20 mg PO DAILY Stand Alone Forms: Work/School Release
[2022-09-08 18:58] LABS: Basophils Absolute Auto 0.1 X10*3/uL (0.0-0.2); Basophils Percent Auto 0.6 % (0-2); Eosinophils Absolute Auto 0.2 X10*3/uL (0.0-0.4); Eosinophils Percent Auto 2.9 % (0-4); Hematocrit 45.2 % (42.0-52.0); Hemoglobin 15.9 g/dl (14.0-18.0); Imm Gran Abs Auto 0.02 X10*3/uL (0.00-0.03); Imm Gran Pct Auto 0.2 % (0.0-0.4); Lymphocytes Absolute Auto 2.3 X10*3/uL (1.2-4.9); Lymphocytes Percent Auto 28.3 % (20-40); Mean Corpuscular HGB Conc 35.2 g/dl (31.0-36.0); Mean Corpuscular Hemoglobin 31.2 pg (27.0-33.0); Mean Corpuscular Volume 88.6 fL (80.0-98.0); Mean Platelet Volume 11.6 fL (9.4-12.4); Monocytes Absolute Auto 0.5 X10*3/uL (0.1-1.2); Monocytes Percent Auto 5.7 % (2-11); Neutrophils Percent Auto 62.3 % (45-73); Platelet Count 249 X10*3/uL (160-400); Red Cell Distribution Width 11.9 % (11.0-16.0)
[2022-09-08 19:45] VITALS: BP 138/98; PULSE 90; RESP 18; TEMP 36.6; O2SAT 96
== END 2022-09-08 20:51 | disposition home or self-care (01) ==
PROVIDERS: Emergency Provider Emergency Medicine; PCP Internal Medicine
DX: R07.89 Other chest pain (principal); M79.602 Pain in left arm; M25.532 Pain in left wrist; R20.2 Paresthesia of skin; Z79.899 Other long term (current) drug therapy
CPT/HCPCS: 36415; 73110; 73130; 80053; 84484; 85025; 93005; 99283; 99284

== ENCOUNTER 2022-10-05 17:16 | Emergency (ER) | payer OTHER, SELFPAY ==
[2022-10-05 17:23] VITALS: BP 142/95; PULSE 95; RESP 18; TEMP 36.6; O2SAT 98; BMI 33.5
[2022-10-05] MEDS: Fluorescein Sodium STRIP 1 STRIP EYE-BOTH (18:42)
[2022-10-05] MEDS: Tetracaine HCl/PF 0.5% Oph Sol 4 ML DROPS 3 DROP EYE-BOTH (18:43)
--- NOTE | 2022-10-05 21:10 | ED.EYEPROB ---
HPI - Eye Problem General Chief complaint: Eye Problems Stated complaint: injury to left eye from work Time Seen by Provider: 10/05/22 20:57 Source: patient Mode of arrival: ambulatory History of Present Illness HPI Narrative: 47-year-old male who at 07:50 this morning was changing if use while at his job and states that something flew into his eye. He now presents over 12 hours later stating that his eyes very irritated. Related Data Home Medications Medication Instructions Recorded Confirmed albuterol sulfate 90 mcg/actuation 0 mcg inhalation 05/29/22 06/01/22 aerosol inhaler (Ventolin HFA) blood sugar diagnostic (FreeStyle #10 ea 05/29/22 06/01/22 Lite Strips) dulaglutide 1.5 mg/0.5 mL mg subcut QWEEK 05/29/22 06/01/22 subcutaneous pen injector (Trulicity) ergocalciferol (vitamin D2) 1,250 1,250 mcg PO QWEEK 05/29/22 06/01/22 mcg (50,000 unit) capsule fenofibrate 160 mg tablet 160 mg PO DAILY 05/29/22 06/01/22 flash glucose scanning reader #1 ea 05/29/22 06/01/22 (FreeStyle Arnold 2 [place]) flash glucose sensor (FreeStyle #1 ea 05/29/22 06/01/22 Arnold 2 Sensor kit) gabapentin 300 mg capsule 300 mg PO BID 05/29/22 06/01/22 metformin 1,000 mg tablet 1,000 mg PO BID 05/29/22 06/01/22 omeprazole 20 mg capsule,delayed 20 mg PO DAILY 05/29/22 06/01/22 release Previous Rx's Medication Instructions Recorded naproxen 500 mg tablet 500 mg PO BID PRN pain #20 tabs 05/07/22 prednisone 20 mg tablet 40 mg PO DAILY #10 tabs 09/08/22 Allergies Allergy/AdvReac Type Severity Reaction Status Date / Time No Known Allergies Allergy Verified 10/05/22 17:23 Review of Systems Review of Systems: Pertinent positives and negatives as stated in HPI PMFSH Past Medical History Source: nursing notes reviewed Medical History Asthma Diabetes type 2, controlled Surgical History History of cholecystectomy History of elbow surgery History of release of tendon Family History Family History Mother Breast cancer Social History Social History Alcohol intake: current Alcohol intake frequency: holidays/special occasions only Patient Tobacco Use Status: Never used Tobacco Advance Directives: No Advance Directives Information Provided: Yes Physical Exam Vital Signs: Vital Signs: Last Vital Signs Temp 98 F 10/05/22 17: Pulse 95 10/05/22 17: Resp 18 10/05/22 17: BP 142/95 H 10/05/22 17: Pulse Ox 98 10/05/22: BMI result Body Mass Index 33.5 VITAL SIGNS: Reviewed. GENERAL: Well developed, well nourished, in no acute distress. HEAD: Normocephalic/atraumatic, EYES: PERRLA, EOMI, OS fluorescein exam: No abrasions/lacerations/foreign body identified there is obvious irritation of the eye EARS: Ext canals without abnormality LUNGS: Normal breath sounds. No adventitious sounds or accessory muscle use. SpO2<98> CARDIOVASCULAR: Regular rate and rhythm without noted murmurs ABDOMEN: Soft, non-tender, non-distended with bowel sounds. MUSCULOSKELETAL: No tenderness, deformities, or effusions noted on gross inspection. EXTREMITIES: No cyanosis, clubbing or edema. SKIN: Inspection of the skin reveals no rashes NEUROLOGIC: Alert and oriented x 4. Strength and sensation to light touch were grossly intact x 4. Medications Administered Discontinued Medications Generic Name Dose Route Start Last Admin Trade Name Freq PRN Reason Stop Dose Admin Fluorescein Sodium 1 strip 10/05/22 17:30 10/05/22 18:42 Fluorescein Sodium Strip EYE-BOTH 10/05/22 17:31 1 strip ONCE ONE Administration Tetracaine HCl 3 drop 10/05/22 17:30 10/05/22 18:43 Tetracaine Hcl/Pf 0.5% Oph [place] 4 Ml Drops EYE-BOTH 10/05/22 17:31 3 drop ONCE ONE Administration Medical Decision Making Medical Decision Making MDM Narrative: 47-year-old male with history and clinical presentation of left eye irritation and no evidence of corneal abrasion or presence of foreign body. Patient was noted to be using his phone without difficulty and at this time have low clinical suspicion for iritis. Patient was instructed to take [id number] ibuprofen for pain and use Visine drops. He was also instructed to follow-up with an eye doctor in the morning. Discharge Plan Discharge Clinical Impression: Discomfort of left eye Patient Disposition: Home, Self-Care Instructions: Eye Pain (ED) Additional Instructions: 1. Ibuprofen 400 mg, orally with milk or food, every 6 hours as needed for pain control. I also recommend the use of Visine drops for additional lubrication and eye comfort. 2. Follow-up with an eye doctor 1st thing in the morning for re-evaluation and further outpatient management. Return to the ER for any worsening symptoms. Prescriptions: No Action naproxen 500 mg tablet 500 mg PO BID PRN (Reason: pain) Qty: 20 0RF prednisone 20 mg tablet 40 mg PO DAILY Qty: 10 0RF metformin 1,000 mg tablet 1,000 mg PO BID fenofibrate 160 mg tablet 160 mg PO DAILY (DME) FreeStyle Arnold 2 [place] Misc See Rx Instructions .ROUTE .MEDSUPPLY Qty: 1 Rx Instructions: As directed albuterol sulfate [Ventolin HFA] 90 mcg/actuation HFA aerosol inhaler 0 mcg inhalation (DME) FreeStyle Lite Strips Strip See Rx Instructions .ROUTE BID Qty: 10 Rx Instructions: As directed Trulicity 1.5 mg/0.5 mL pen injector subcut QWEEK ergocalciferol (vitamin D2) 1,250 mcg (50,000 unit) capsule 1,250 mcg PO QWEEK (DME) FreeStyle Arnold 2 Sensor Kit See Rx Instructions .ROUTE .MEDSUPPLY Qty: 1 Rx Instructions: As directed gabapentin 300 mg capsule 300 mg PO BID omeprazole 20 mg capsule,delayed release(DR/EC) 20 mg PO DAILY Referrals: Dino Hall MD [Primary Care Provider] -
== END 2022-10-05 21:46 | disposition home or self-care (01) ==
PROVIDERS: Emergency Provider Student in an Organized Health Care Education/Training Program; PCP Internal Medicine
DX: H57.12 Ocular pain, left eye (principal); Z79.899 Other long term (current) drug therapy
CPT/HCPCS: 99282; 99283